=== PATIENT | male | born 1930 | race Caucasian/White ===

== ENCOUNTER → 2016-10-28 | Outpatient (CLI) | payer MEDICARE ==
[2015-10-28 15:00] VITALS: BP 131/40
[~2016-10-28] MED LIST: APIX5TAB PO; ASPI81TA2 PO; ASPI81TA50 PO; CLOP75TA PO; FURO-69 PO; GABA600T PO; INSU100C4 SQ; INSU100V13 SQ; INSU100V8 SQ; ISOS30TA4 PO; LOSA100T6 PO; METO25TA9 PO; MULT1CAP15 PO; NITR0.4T6 SL; OXYC1TAB8 PO; SIMV20TA3 PO; TAMS0.4C97 PO; oxygen
--- NOTE | 2016-10-29 16:34 | RAD ---
APPROVED REPORT Patient Location: OUT-PATIENT Indications PAD VELOCITY AND DOPPLER WAVEFORM ANALYSIS RIGHT cm/secWaveformSeverity LEFT c m/secWaveformSeverity pCFA 198.0BiphasicpCFA 119.0 Prof Fem Art. 256.0BiphasicProf Fem Art. 163.0Biphasic Fem Art Prox. 106.0BiphasicFem Art Prox. 80.0Biphasic Fem Art Mid. 121.0BiphasicFem Art Mid. 101.0Monophasic Fem Art Dist. 133.0MonophasicFem Art Dist. 65.0Monophasi c Pop Art(Fossa) 56.0MonophasicPop Art(Fossa) 37.0Biphasic BUSINESS DEVELOPMENT INTERN Mid. 38.0MonophasicPTA Mid. 27.0Monophasic Per Art Mid. 28.0MonophasicPer Art Mid. 26.0Monophasic JARON Prox. 118.0MonophasicATA Prox. 77.0Monophasi c JARON Dist. 30.0MonophasicATA Dist. 53.0Monophasic Findings Rivas scale images of the bilateral lower extremity arterial vessels was performed. On the right there is moderate to severe plaque in the right common femoral artery extending into the profunda femoris artery. There is approximately a greater than 50% stenosis involving the proximal aspect of the super ficial femoral artery. There are monophasic waveforms throughout the lower extremity arterial tree. S uspect greater than 50% stenosis involving the SFA popliteal junction. Diminished flows are noted in the posterior tibial and peroneal vessels suspicious for diffuse high-grade disease. On the left there are elevated velocities in the profunda femoris artery with moderate diffuse plaque involving the common femoral artery and bifurcation. Monophasic waveforms are noted below the common femoral artery with again approximately 50% stenosis involving the distal left SFA and popliteal ves sels. Monophasic waveforms are again noted in the below-knee vessels suspicious for moderate diffuse disease. Critical Notification Critical Value: No <Conclusion> 1. Suspect high-grade right common femoral artery disease extending into the profunda femoris and gre ater than 50% stenosis involving the bilateral distal SFA popliteal junctions. 2. Monophasic waveforms below the knee suspicious for moderate diffuse disease.
== END | disposition home or self-care (01) ==
LOC: US 12:14
PROVIDERS: ATTEND Internal Medicine Cardiovascular Disease
DX: I73.9 Peripheral vascular disease, unspecified (principal)
CPT/HCPCS: 93925

== ENCOUNTER 2016-11-12 06:26 | Observation (INO) | payer MEDICARE ==
[2016-11-12] VITALS (10 sets, daily range): BP systolic 137–179; BP diastolic 67–89
[~2016-11-12] VITALS: Ht 182.9 cm; Wt 88.0 kg
[2016-11-12] MEDS ORDERED: GABA800T2 PO (06:47)
[2016-11-12] MEDS ORDERED: FURO40TA4 PO (06:51)
[2016-11-12] MEDS ORDERED: OXYC1TAB9 PO (06:51)
[2016-11-12] MEDS ORDERED: LIDOCAINE 2% 20 ML VIAL. ONE (06:58)
[2016-11-12] MEDS ORDERED: IODIXANOL 320 MG/ML 100 ML VIAL. ONE (06:58)
[2016-11-12 07:08] LABS: HEMATOCRIT 39.9 % (39.0-53.0); HEMOGLOBIN 13.3 g/dL (13.0-17.5); RED BLOOD COUNT 4.15 x10^6/uL (4.30-5.70); RED CELL DISTRIBUTION WIDTH 14.8 % (11.5-14.5)
[2016-11-12 07:20] LABS: INR 1.1 (0.8-1.1); PROTHROMBIN TIME PATIENT 13.8 SEC (11.7-14.0)
[2016-11-12 07:21] LABS: CALCIUM 8.4 mg/dL (8.5-10.1); CREATININE 1.9 mg/dL (0.7-1.3); GFR 33.7; POTASSIUM 4.4 mmol/L (3.5-5.1)
[2016-11-12] MEDS ORDERED: fentaNYL PF VIAL 250 MCG/5 ML VIAL ONE (07:57)
[2016-11-12] MEDS ORDERED: MIDAZOLAM HCL/PF 5 MG/5 ML VIAL. ONE (07:57)
[2016-11-12] MEDS ORDERED: HEPARIN for IV BOLUS 10,000 UNIT/10 ML VIAL. ONE ×2 (07:57→08:43)
[2016-11-12] MEDS ORDERED: LIDOCAINE 2% 20 ML VIAL. IJ ONE (08:00)
[2016-11-12] MEDS ORDERED: IODIXANOL 320 MG/ML 100 ML VIAL. IART ONE (08:00)
[2016-11-12] MEDS ORDERED: MIDAZOLAM HCL/PF 5 MG/5 ML VIAL. IV ONE (08:00)
[2016-11-12] MEDS ORDERED: fentaNYL PF VIAL 250 MCG/5 ML VIAL IV ONE (08:00)
--- NOTE | 2016-11-12 08:12 | PDOC ---
MODERATE SEDATION ASSESSMENT RISKS/ALTERNATIVES Risks/Alternatives Risks and alternatives of this type of sedation and procedure discussed with: RISK/ALTERNATIVES: Patient H & P ON CHART H & P H & P on chart and reviewed for co-morbid conditions and appropriate labs. H&P ON CHART: Yes STATUS PREG STATUS ASSESSED: N/A MEDS/ALLERGIES REVIEWED Meds/Allergies Reviewed Medications and Allergies including time and route of recently administered narcotics and sedatives. MEDS/ALLERGIES REVIEWED: Yes ASA RATING ASA RATING: II AIRWAY ASSESSMENT Airway Assessment Airway patency, oral function limitations, presence of caps, crowns, dentures, partials, and ability to extend neck assessed. AIRWAY ASSESSMENT: Yes MALLAMPATI SCORE MALLAMPATI SCORE: II PRE-SEDATION ASSESSMENT PRE-SEDATION ASSESSMENT: Yes VICKI BATISTA MD Nov 12, 2016 08:12
[2016-11-12] MEDS ORDERED: NITROGLYCERIN 4 MG/20 ML SYRINGE for CATH LAB. ONE ×2 (08:44→08:45)
[2016-11-12] MEDS ORDERED: dilTIAZem IV PUSH 25 MG/5 ML VIAL ONE (08:44)
[2016-11-12] MEDS ORDERED: HEPARIN for IV BOLUS 10,000 UNIT/10 ML VIAL. IV ONE (08:45)
[2016-11-12] MEDS ORDERED: ASPIRIN 325 MG TABLET ONE (09:14)
[2016-11-12] MEDS ORDERED: NITROGLYCERIN 200 MCG/2 ML SYRINGE FOR CATH/VASC LAB. IART ONE (09:15)
[2016-11-12] MEDS ORDERED: ASPIRIN 325 MG TABLET PO ONE (09:15)
[2016-11-12] MEDS ORDERED: CLOPIDOGREL BISULFATE 75 MG TABLET ONE (09:47)
[2016-11-12] MEDS ORDERED: IV 1/2 NORMAL SALINE 1,000 ML IV SCH (09:54)
[2016-11-12] MEDS ORDERED: NITROGLYCERIN INT CAT ONE ×5 (10:00)
[2016-11-12] MEDS ORDERED: CLOPIDOGREL BISULFATE 75 MG TABLET PO ONE (10:00)
[2016-11-12] MEDS ORDERED: CLOPIDOGREL BISULFATE 75 MG TABLET PO SCH (10:00)
[2016-11-12] MEDS ORDERED: ACETAMINOPHEN 325 MG TABLET. PO PRN (10:00)
[2016-11-12] MEDS ORDERED: PUSH INT CAT ONE ×5 (10:00)
[2016-11-12] MEDS ORDERED: [UNRECOGNIZED DRUG - OTHER] INT CAT ONE ×5 (10:00)
[2016-11-12] MEDS ORDERED: HEPARIN SODIUM INT CAT ONE ×5 (10:00)
[2016-11-12] MEDS ORDERED: DILTIAZEM INT CAT ONE ×5 (10:00)
[2016-11-12] MEDS ORDERED: ASPIRIN CHEWABLE 81 MG TABLET. PO ONE (10:00)
[2016-11-12] MEDS ORDERED: ACETAMINOPHEN 325 MG TABLET. PO ONE (11:00)
--- NOTE | 2016-11-12 14:33 | CARD ---
APPROVED REPORT Patient StatusOUT-PATIENT Server Programmer: Dannielle Mathews RT (R) Procedure(s) performed: 1. Aortogram with bilateral lower extremity runoff 2. Successful orbital atherectomy/TRAINING PERSONNEL SUPERVISOR/stent placement to the left superficial femoral artery and suc cessful balloon TRAINING PERSONNEL SUPERVISOR to the left anterior tibial artery INDICATION FOR PROCEDURE The indication(s) include : Peripheral vascular disease with claudication. PROCEDURE NARRATIVE After explaining the risks, benefits and alternative options, informed consent was obtained from krystian ent. Patient brought to the cardiac [facility] and his right groin was prepped and draped in the usual fashion. 20 mL of 2% lidocaine was infiltrated into skin and subcutaneous tissues for local anesthesi a. Arterial access was obtained in the right common femoral artery and a 5 Monegasque sheath was inserted . 5 Monegasque pigtail catheter was used to perform aortogram with bilateral lower extremity runoff. The following findings were noted. FINDINGS 1. No significant stenosis involving the distal descending aorta. Widely patent previously placed st ents in proximal segments of common iliac arteries bilaterally (kissing stents). The distal segment o f the left common iliac artery showed 40% stenosis. 2. No significant stenosis involving bilateral external iliac and common femoral arteries. 3. The left superficial femoral artery showed heavily calcified long 80% stenosis in the midsegment and 80% stenosis in the distal segment. The right superficial femoral artery showed 50% stenosis in t he proximal segment, 60-70% calcified stenosis in the midsegment and 70% stenosis in the distal segme nt. 4. [id number], there is three vessel runoff and right lower extremity with moderate diffuse dise ase distally. In the left lower extremity, the anterior tibial artery showed 80% proximal segment minh nosis and chronic total occlusion of the distal segment. The peroneal artery did not show any signifi cant stenosis. The left posterior tibial artery showed 90% ostial and proximal segment stenosis. INTERVENTION The sheath in the right groin was exchanged over a 0.035 Stork guidewire to a 6 Monegasque 45 cm destinat ion sheath that was advanced over the aortic marek with the help of a crossover catheter and the tip was positioned in the proximal segment of the left superficial femoral artery. The stenoses in the l eft superficial femoral and anterior tibial arteries were crossed with a 0.014 inch viper guidewire. The left anterior tibial artery stenosis was dilated with a 3.0 x 80 mm Tellez Omega balloon. Subseq uently, multiple orbital atherectomy passes were performed within the mid and distal segments of the left superficial femoral artery using CSI 2.0 Stealth orbital atherectomy catheter. Multiple inflatio ns were performed within this long stenosis using 5.5 x 1 50 mm Tellez Omega balloon following which this was treated with 5.5 x 1 50 mm Tellez Supera self-expanding stent. The stent was then postdilat ed with the 5.5 balloon. Follow-up angiography showed resolution of the stenoses to 0% with good dist al flow. We decided to manage the left posterior tibial artery stenosis conservatively for now since the stenosis was extending into the ostial segment and we did not want to compromise the very good fl ow in the peroneal artery. Patient tolerated the procedure well. Hemostasis in the right groin was ac hieved using Perclose suture closure device. There were no immediate complications. Conclusion 1. Bilateral lower extremity peripheral vascular disease as described above. The previously placed s tents in the common iliac arteries bilaterally are patent. 2. Successful orbital atherectomy/TRAINING PERSONNEL SUPERVISOR/stent placement to the left superficial femoral artery and suc cessful balloon TRAINING PERSONNEL SUPERVISOR to the left anterior tibial artery Recommendations 1. Risk factor modification, regular exercise regimen 2. We will consider atherectomy/TRAINING PERSONNEL SUPERVISOR to right superficial femoral artery at a later date if symptomat ic.
[2016-11-12] MEDS ORDERED: CLOP75TA PO (18:03)
[2016-11-13] MEDS ORDERED: CLOPIDOGREL BISULFATE 75 MG TABLET PO SCH (08:00)
== END 2016-11-12 18:45 | disposition home or self-care (01) ==
LOC: CCL 06:26 → 2 NORTH 13:47
PROVIDERS: ADMIT Internal Medicine Cardiovascular Disease; ATTEND Internal Medicine Cardiovascular Disease
DX: I73.9 Peripheral vascular disease, unspecified (principal)
CPT/HCPCS: 36415; 37227; 37228; 75630; 80048; 82947; 85027; 85610; 85730; 96365; C1769; C1771; C1876; C1885; C1892; G0269; G0378; G0379; J2250; J3010; J3490; J7030

== ENCOUNTER → 2017-01-10 | Outpatient (CLI) | payer MEDICARE ==
[2016-11-12 14:36] VITALS: BP 150/78
[~2017-01-10] MED LIST changes: +ASPI-630 PO; -ASPI81TA2 PO; +FURO40TA4 PO; +GABA800T2 PO; +NITR0.4T22 SL; -NITR0.4T6 SL; +OXYC1TAB9 PO
--- NOTE | 2017-01-10 12:18 | KCIC ---
CT CHEST WO CONTRAST Indication: . Persistent cough for over one month. 70 year smoking history. Contrast: None Exposure: One or more of the following individualized dose reduction techniques were utilized for this examination: 1. Automated exposure control 2. Adjustment of the mA and/or kV according to patient size 3. Use of iterative reconstruction technique. Findings: Limited exam of vascular structures without intravenous contrast. Dense aortic calcifications with diffuse ectasia. No evidence of aneurysmal dilatation. The appearance of the aorta is roughly similar as compared with the axial images available from March 11, 2017. The density of calcifications is appeared to have slightly increased however. Coronary artery calcifications are noted. No pericardial effusion. Scattered small mediastinal lymph nodes are noted without bulky or significant lymph node enlargement identified. No pleural effusion. There is a pleural-based opacity in the posterior aspect of the right lower lobe with some adjacent pleural thickening. This opacity has irregular margins and measures 2.6 cm wide by 2.8 cm cephalocaudal by 1.4 cm depth. Small cavities or blebs are identified adjacent to this. Densely calcified nodule in the left lung is similar to the prior exam although the amount of calcification appears slightly greater. The trachea and central airways are patent. Degenerative spondylosis identified at the visualized spine. Limited evaluation of the upper abdomen due to the lack of contrast. The upper right kidney demonstrates at least 2 low-density lesions, partially visualized, both of which measure water density compatible with cysts. There is also a partially visualized smaller lesion of the left kidney compatible with a cyst. There is a tiny calcification within the dependent gallbladder compatible with a small gallstone. Low-density lesion identified in the posterior right lobe of the liver measures water density, compatible with a cyst. This measures 4.5 cm diameter, and has increased in size since prior study when it measured 3.2 cm diameter. Several additional smaller lesions probably also represent cysts. IMPRESSION: 1. Small ill-defined pleural-based opacity with some adjacent pleural thickening or fluid in the posterior right pulmonary lower lobe. This could be inflammatory or represent a small focus of pneumonia. Malignant tumor is not excludable. Recommend short term CT chest follow-up in no more than 1 month to see if this resolves. 2. Small gallstone. 3. Right lobe liver lesion is compatible with a cyst, and measures slightly larger than prior study. 4. Partially visualized lesions at the upper pole of both kidneys, most compatible with cysts. Electronically signed by: Quintin Luque MD (01/10/2017 12:14 PM)
== END | disposition home or self-care (01) ==
LOC: KCIC CT 10:06
PROVIDERS: ATTEND Family Medicine
DX: R05 Cough (principal); F17.200 Nicotine dependence, unspecified, uncomplicated
CPT/HCPCS: 71250

== ENCOUNTER 2017-01-21 11:57 | Emergency (ER) | payer MEDICARE ==
[~2017-01-21] VITALS: Ht 182.9 cm; Wt 83.5 kg
[2017-01-21] MEDS ORDERED: OXYMETAZOLINE 0.05% NASAL SPRAY 30ML BOTTLE. NS ONE (12:15)
--- NOTE | 2017-01-21 12:18 | PHYS DOC ---
Past Medical History Past Medical History: CVA, Diabetes-Type II, High Cholesterol, Hypertension, MS Additional Past Medical Histor: Enlarged Prostate Past Surgical History: Tonsillectomy, Other Additional Past Surgical Histo: back, cataract, hernia, L rotator cuff Alcohol Use: Sober Drug Use: None Adult General Chief Complaint Chief Complaint: NOSEBLEED HPI HPI Patient is a 86 year old male who presents with left-sided nosebleed. He states he had one 2 days ago when he was leaving the [facility] and was given Afrin. States it resolved just Afrin. Today he was at Dr. Shannon's office getting labs drawn his nose started bleeding. He denies any fevers chills nausea vomiting chest pain or other problems. Review of Systems Review of Systems Constitutional: Denies fever or chills [] Eyes: Denies change in visual acuity, redness, or eye pain [] HENT: Denies nasal congestion or sore throat [] Respiratory: Denies cough or shortness of breath [] Cardiovascular: No additional information not addressed in HPI [] GI: Denies abdominal pain, nausea, vomiting, bloody stools or diarrhea [] : Denies dysuria or hematuria [] Musculoskeletal: Denies back pain or joint pain [] Integument: Denies rash or skin lesions [] Neurologic: Denies headache, focal weakness or sensory changes [] Endocrine: Denies polyuria or polydipsia [] Current Medications Current Medications Current Medications Medications (Trade) Dose Ordered Sig/Lizzeth Start Time Stop Time Status Last Admin Dose Admin Oxymetazoline HCl (Afrin) 2 spray 1X ONCE 01/21/17 12:15 01/21/17 12:16 DC 01/21/17 12:10 2 SPRAY Allergies Allergies Allergies Coded Allergies Type Severity Reaction Last Updated Verified ciprofloxacin Allergy Intermediate 01/03/14 Yes promethazine Allergy Intermediate 01/03/14 Yes azithromycin Allergy Unknown 11/12/16 Yes Physical Exam Physical Exam Constitutional: Well developed, well nourished, no acute distress, non-toxic appearance. [] HENT: Normocephalic, atraumatic, bilateral external ears normal, oropharynx moist, no oral exudates, nose normal. Bleeding from the left Stewart with blood in the posterior pharynx. No obvious source of bleeding noted Eyes: PERRLA, EOMI, conjunctiva normal, no discharge. [] Neck: Normal range of motion, no tenderness, supple, no stridor. [] Cardiovascular:Heart rate regular rhythm, no murmur [] Lungs & Thorax: Bilateral breath sounds clear to auscultation [] Abdomen: Bowel sounds normal, soft, no tenderness, no masses, no pulsatile masses. [] Skin: Warm, dry, no erythema, no rash. [] Back: No tenderness, no CVA tenderness. [] Extremities: No tenderness, no cyanosis, no clubbing, ROM intact, no edema. [] Neurologic: Alert and oriented X 3, normal motor function, normal sensory function, no focal deficits noted. [] Psychologic: Affect normal, judgement normal, mood normal. [] Current Patient Data Vital Signs Vital Signs Date Time Temp Pulse Resp B/P (MAP) Pulse Ox O2 Delivery O2 Flow Rate FiO2 01/21/17 12:58 82 18 162/69 (100) 89 Room Air 01/21/17 12:06 97.9 97.9 Lab Values Laboratory Tests Test 01/21/17 12:20 White Blood Count 5.7 x10^3/uL (4.0-11.0) Red Blood Count 2.92 x10^6/uL (4.30-5.70) L Hemoglobin 9.3 g/dL (13.0-17.5) L Hematocrit 28.5 % (39.0-53.0) L Mean Corpuscular Volume 97 fL (79-100) Mean Corpuscular Hemoglobin 32 pg (25-35) Mean Corpuscular Hemoglobin Concent 33 g/dL (31-37) Red Cell Distribution Width 16.3 % (11.5-14.5) H Platelet Count 145 x10^3/uL (140-400) Neutrophils (%) (Auto) 63 % (31-73) Lymphocytes (%) (Auto) 23 % (24-48) L Monocytes (%) (Auto) 10 % (0-9) H Eosinophils (%) (Auto) 3 % (0-3) Basophils (%) (Auto) 1 % (0-3) Neutrophils # (Auto) 3.6 x10^3uL (1.8-7.7) Lymphocytes # (Auto) 1.3 x10^3/uL (1.0-4.8) Monocytes # (Auto) 0.6 x10^3/uL (0.0-1.1) Eosinophils # (Auto) 0.2 x10^3/uL (0.0-0.7) Basophils # (Auto) 0.1 x10^3/uL (0.0-0.2) Prothrombin Time 15.4 SEC (11.7-14.0) H Prothrombin Time INR 1.3 (0.8-1.1) H PTT 35 SEC (24-38) Sodium Level 139 mmol/L (136-145) Potassium Level 4.8 mmol/L (3.5-5.1) Chloride Level 108 mmol/L (98-107) H Carbon Dioxide Level 25 mmol/L (21-32) Anion Gap 6 (6-14) Blood Urea Nitrogen 17 mg/dL (8-26) Creatinine 1.8 mg/dL (0.7-1.3) H Estimated GFR (Cockcroft-Gault) 35.9 BUN/Creatinine Ratio 9 (6-20) Glucose Level 129 mg/dL (70-99) H Calcium Level 8.3 mg/dL (8.5-10.1) L Total Bilirubin 0.4 mg/dL (0.2-1.0) Aspartate Amino Transferase (AST) 15 U/L (15-37) Alanine Aminotransferase (ALT) 20 U/L (16-63) Alkaline Phosphatase 68 U/L (46-116) Total Protein 6.2 g/dL (6.4-8.2) L Albumin 3.0 g/dL (3.4-5.0) L Albumin/Globulin Ratio 0.9 (1.0-1.7) L Laboratory Tests 01/21/17 12:20 Laboratory Tests 01/21/17 12:20 EKG EKG [] Radiology/Procedures Radiology/Procedures [] Impressions: Epistasis Course & Med Decision Making Course & Med Decision Making Pertinent Labs and Imaging studies reviewed. (See chart for details) Patient presented to the ER with epistasis out of his left naris. I cannot visualize the site of bleeding. 7.5 rapid Rhino was inserted and inflated and he still has bleeding down the posterior pharynx and right naris. His blood pressure is better controlled now on the 130s systolic. Spoke with [facility] transfer team or guarding the patient's continued nosebleed, available labs, patient's anticoagulation status of being on vale Mayo and Dr. Bryan Grijalva with ENT as except the patient transfer. The patient to go to the emergency Department be seen by ENT resident. Patient is in stable condition and agreeable to the plan. Dragon Disclaimer Dragon Disclaimer This electronic medical record was generated, in whole or in part, using a voice recognition dictation system. Departure Departure Impression: Primary Impression: Epistaxis Disposition: 02 TRANSFER [facility] Condition: STABLE Referrals: PATTI SHANNON MD (PCP) Patient Instructions: Nosebleed, [id number] Additional Instructions: You were seen in the emergency department and we attempted to get her nosebleed to stop. Since her on a blood thinner or having troubles getting her nose to stop bleeding. Your being transferred to the [facility] emergency department with an ears nose and throat physicians will see you. Your being transferred by the ambulance service. Was a pleasure to meet you. TULIO GOLDSTEIN MD Jan 21, 2017 12:18
[2017-01-21 12:37] LABS: BASO # 0.1 x10^3/uL (0.0-0.2); BASO % 1 % (0-3); EOS % 3 % (0-3); HEMATOCRIT 28.5 % (39.0-53.0); HEMOGLOBIN 9.3 g/dL (13.0-17.5); LYMPH # 1.3 x10^3/uL (1.0-4.8); LYMPH % 23 % (24-48); MEAN CORPUSCULAR HEMOGLOBIN 32 pg (25-35); MEAN CORPUSCULAR HGB CONC 33 g/dL (31-37); MEAN CORPUSCULAR VOLUME 97 fL (79-100); MONO % 10 % (0-9); NEUT % 63 % (31-73); PLATELET COUNT 145 x10^3/uL (140-400); RED BLOOD COUNT 2.92 x10^6/uL (4.30-5.70); RED CELL DISTRIBUTION WIDTH 16.3 % (11.5-14.5); WHITE BLOOD COUNT 5.7 x10^3/uL (4.0-11.0)
[2017-01-21 12:47] LABS: CALCIUM 8.3 mg/dL (8.5-10.1); CREATININE 1.8 mg/dL (0.7-1.3); GFR 35.9; POTASSIUM 4.8 mmol/L (3.5-5.1)
[2017-01-21 12:53] LABS: ALBUMIN/GLOBULIN RATIO 0.9 (1.0-1.7); TOTAL BILIRUBIN 0.4 mg/dL (0.2-1.0); TOTAL PROTEIN 6.2 g/dL (6.4-8.2)
[2017-01-21 12:54] LABS: INR 1.3 (0.8-1.1); PROTHROMBIN TIME PATIENT 15.4 SEC (11.7-14.0)
[2017-01-21 13:11] VITALS: BP 160/70
== END 2017-01-21 14:07 | disposition short-term general hospital (02) ==
LOC: ER 11:57
DX: R04.0 Epistaxis (principal); E11.9 Type 2 diabetes mellitus without complications; E78.00 Pure hypercholesterolemia, unspecified; I10 Essential (primary) hypertension; I25.2 Old myocardial infarction; Z98.49 Cataract extraction status, unspecified eye; N40.0 Benign prostatic hyperplasia without lower urinary tract symptoms; Z86.73 Personal history of transient ischemic attack (TIA), and cerebral infarction without residual deficits; Z88.1 Allergy status to other antibiotic agents; Z88.8 Allergy status to other drugs, medicaments and biological substances
CPT/HCPCS: 30901; 36415; 80053; 85027; 85610; 85730; 99285-25

== ENCOUNTER → 2017-09-01 | Outpatient (CLI) | payer MEDICARE | END | disposition home or self-care (01) | LOC: KCIC 14:59 | DX: I70.0 Atherosclerosis of aorta (principal); D71 Functional disorders of polymorphonuclear neutrophils; R07.81 Pleurodynia; Z91.81 History of falling | CPT/HCPCS: 71046 ==

== ENCOUNTER → 2018-05-09 | Outpatient (CLI) | payer MEDICARE ==
[~2018-05-09] MED LIST changes: -LOSA100T6 PO; +LOSA100T7 PO; +METO-239 PO; -METO25TA9 PO; +OXYC-411 PO; -OXYC1TAB9 PO
--- NOTE | 2018-05-09 16:56 | KCIC ---
Three-view right rib detail series Clinical indications: Patient fell a few days ago. Right rib pain just below the nipple line on the right side. FINDINGS: There are nondisplaced fractures of the lateral aspect of the right seventh and eighth ribs. IMPRESSION: Post traumatic fractures of the right seventh and eighth ribs. Electronically signed by: Alex Barry MD (05/09/2018 4:53 PM) [facility]
--- NOTE | 2018-05-09 16:59 | KCIC ---
EXAM: Chest, 2 views. HISTORY: Fall. COMPARISON: 09/01/2017 FINDINGS: 2 views of the chest are obtained. There is bilateral lower lobe atelectasis. There is a calcified left lower lobe granuloma. There are coarse likely chronic interstitial markings. There is no pleural effusion or pneumothorax. The heart is normal in size. IMPRESSION: Coarse likely chronic interstitial markings and bilateral basilar atelectasis. Electronically signed by: Dilcia Saravia MD (05/09/2018 4:55 PM) [place] [id number]
== END | disposition home or self-care (01) ==
LOC: KCIC 15:52
PROVIDERS: ATTEND Family Medicine
DX: S22.41XA Multiple fractures of ribs, right side, initial encounter for closed fracture (principal); J84.10 Pulmonary fibrosis, unspecified; F17.210 Nicotine dependence, cigarettes, uncomplicated; W19.XXXA Unspecified fall, initial encounter; Y93.89 Activity, other specified; Y92.89 Other specified places as the place of occurrence of the external cause; Y99.8 Other external cause status
CPT/HCPCS: 71046; 71100